=== PATIENT | female | born 1950 | race Caucasian/White ===

== ENCOUNTER 2020-11-10 12:54 | Outpatient (CLI) | payer MEDICARE, OTHER ==
[2020-11-10] MEDS ORDERED: DIPH25CA61 PO (13:45)
[2020-11-10] MEDS ORDERED: OXYB10TA26 PO (13:45)
[2020-11-10] MEDS ORDERED: ASPI81TA45 PO (13:45)
[2020-11-10] MEDS ORDERED: COFF1CAP2 PO (13:45)
[2020-11-10] MEDS ORDERED: MELA10TA PO (13:45)
[2020-11-10] MEDS ORDERED: ATOR20TA37 PO (13:45)
[2020-11-10] MEDS ORDERED: PRIM250T34 PO (13:45)
[2020-11-10] MEDS ORDERED: Prevagen PO (13:45)
[2020-11-10] MEDS ORDERED: DILT240C61 PO (13:45)
[2020-11-10] MEDS ORDERED: OXYC-380 PO (13:45)
[2020-11-10] MEDS ORDERED: SENN8.6T98 PO (13:45)
[2020-11-10] MEDS ORDERED: ARIP10TA33 PO (13:45)
[2020-11-10] MEDS ORDERED: Gabapentin PO (13:45)
[2020-11-10] MEDS ORDERED: LEVO100T5 PO (13:45)
[2020-11-10] MEDS ORDERED: NAPR220C2 PO (13:45)
[2020-11-10] MEDS ORDERED: OMEP40CA42 PO (13:45)
[2020-11-10] MEDS ORDERED: CYCL10TA2 PO (13:45)
[2020-11-10] MEDS ORDERED: LORA10TA75 PO (13:45)
[2020-11-10] MEDS ORDERED: PARO40TA3 PO (13:45)
[2020-11-10] MEDS ORDERED: CARB1TAB33 PO (14:00)
== END 2020-11-10 23:59 | disposition home or self-care (01) ==
LOC: STAR 12:54
PROVIDERS: ATTEND Orthopaedic Surgery
DX: Z01.812 Encounter for preprocedural laboratory examination (principal); Z20.822 Contact with and (suspected) exposure to COVID-19; S46.011A Strain of muscle(s) and tendon(s) of the rotator cuff of right shoulder, initial encounter; M19.011 Primary osteoarthritis, right shoulder; M25.511 Pain in right shoulder; X58.XXXA Exposure to other specified factors, initial encounter; Y93.89 Activity, other specified; Y92.89 Other specified places as the place of occurrence of the external cause; Y99.8 Other external cause status
CPT/HCPCS: 87081; 87635

== ENCOUNTER 2020-11-16 05:20 | Day surgery (SDC) | payer MEDICARE, OTHER ==
[~2020-11-16] VITALS: Ht 149.9 cm; Wt 56.1 kg
[~2020-11-16 05:20] MED LIST: ARIP10TA33 PO; ASPI81TA45 PO; ATOR20TA37 PO; CARB1TAB33 PO; COFF1CAP2 PO; CYCL10TA2 PO; DILT240C61 PO; DIPH25CA61 PO; Gabapentin PO; LEVO100T5 PO; LORA10TA75 PO; MELA10TA PO; NAPR220C2 PO; OMEP40CA42 PO; OXYB10TA26 PO; OXYC-380 PO; PARO40TA3 PO; PRIM250T34 PO; Prevagen PO; SENN8.6T98 PO
[2020-11-16 06:08] VITALS: BP 135/81
[2020-11-16] MEDS ORDERED: GABA100C PO (06:14)
[2020-11-16] MEDS ORDERED: CHLORHEXIDINE 15 ML UDC ONE (06:16)
[2020-11-16] MEDS ORDERED: BUPIVACAINE/PF 0.5% ONE (06:19)
[2020-11-16] MEDS ORDERED: CLINDAMYCIN 150 MG/ML, 6ML ONE (06:20)
[2020-11-16] MEDS ORDERED: CHLORHEXIDINE 15 ML UDC MM ONE (06:30)
[2020-11-16] MEDS ORDERED: LACTATED RINGERS 1,000 ML IV SCH (06:30)
[2020-11-16] MEDS ORDERED: BUPIVACAINE LIPOSOME/PF 10ML INFIL ONE (06:38)
[2020-11-16] MEDS ORDERED: MIDAZOLAM 1 MG/ML, 2ML ONE (06:42)
[2020-11-16] MEDS ORDERED: FENTANYL PF 100 MCG/2ML ONE (06:42)
[2020-11-16] MEDS ORDERED: SUGAMMADEX 200 MG/2 ML IVPush ONE (06:56)
[2020-11-16] MEDS ORDERED: EPINEPHRINE 1 MG/ML, 1ML ONE (06:56)
[2020-11-16] MEDS ORDERED: OXYcodone/APAP 10/325MG TABLET PO PRN (07:00)
[2020-11-16] MEDS ORDERED: CYCLOBENZAPRINE 10 MG TABLET PO PRN (07:00)
[2020-11-16] MEDS ORDERED: ACETAMINOPHEN 325 MG TABLET PO PRN (07:30)
[2020-11-16] MEDS ORDERED: OXYcodone 5 MG/5 ML ORAL.SOL UDC PO PRN (07:30)
[2020-11-16] MEDS ORDERED: LABETALOL 5MG/ML, 20ML IV PRN (07:30)
[2020-11-16] MEDS ORDERED: ALBUTEROL SULFATE 2.5 MG/3 ML NPPB PRN (07:30)
[2020-11-16] MEDS ORDERED: BUPIVACAINE/PF 0.25% ONE (07:30)
[2020-11-16] MEDS ORDERED: hydrALAzine 20 MG/ML, 1ML IV PRN (07:30)
[2020-11-16] MEDS ORDERED: PROMETHAZINE 25 MG/ML, 1ML IVPush PRN (07:30)
[2020-11-16] MEDS ORDERED: HYDROmorphone 1 MG/ML, 1ML INJ IVPush PRN (07:30)
[2020-11-16] MEDS ORDERED: FENTANYL PF 100 MCG/2ML IV PRN (07:30)
[2020-11-16] MEDS ORDERED: MEPERIDINE/PF 25MG/0.5ML IVPush PRN (07:30)
[2020-11-16] MEDS ORDERED: LORazepam 2 MG/ML, 1ML IVPush PRN (07:30)
[2020-11-16] MEDS ORDERED: LIDOCAINE-MPF 2% ,5ML ONE (07:38)
[2020-11-16] MEDS ORDERED: NEOSTIGMINE 1 MG/ML, 10ML ONE (07:38)
[2020-11-16] MEDS ORDERED: PROPOFOL 10 MG/ML, 20ML ONE (07:38)
[2020-11-16] MEDS ORDERED: DEXAMETHASONE 4 MG/ML, 1ML ONE (07:38)
[2020-11-16] MEDS ORDERED: ONDANSETRON 2MG/ML, 2ML ONE (07:38)
[2020-11-16] MEDS ORDERED: CEFAZOLIN 1,000 MG ONE (07:38)
[2020-11-16] MEDS ORDERED: ROCURONIUM 10MG/ML,5ML ONE (07:38)
[2020-11-16] MEDS ORDERED: GLYCOPYRROLATE 0.2MG/1ML, 5ML ONE (07:38)
[2020-11-16] MEDS ORDERED: CARBIDOPA/LEVODOPA 10 MG/100 MG TABLET PO SCH (08:00)
[2020-11-16] MEDS ORDERED: PAROXETINE HCL 40 MG PO SCH (09:00)
[2020-11-16] MEDS ORDERED: PRIMIDONE 250 MG TABLET PO SCH (09:00)
[2020-11-16] MEDS ORDERED: DILTIAZEM HCL 240 MG PO SCH (09:00)
[2020-11-16] MEDS ORDERED: LORATADINE 10 MG TABLET PO SCH (09:00)
[2020-11-16] MEDS ORDERED: GABAPENTIN 100 MG CAPSULE PO SCH (09:00)
[2020-11-16] MEDS ORDERED: TEMPLATE NON-FORMULARY MED. (Omeprazole** 40 MG) PO SCH (09:00)
[2020-11-16] MEDS ORDERED: ARIPIPRAZOLE 10 MG TABLET PO SCH (09:00)
[2020-11-16] MEDS ORDERED: TEMPLATE NON-FORMULARY MED. (Oxybutynin Chloride** (Oxybutynin Chloride Er**) 10 MG) PO SCH (09:00)
[2020-11-16] MEDS ORDERED: LEVOTHYROXINE 100 MCG TABLET PO SCH (09:00)
[2020-11-16] MEDS ORDERED: ASPIRIN 81 MG TABLET EC PO SCH (09:00)
[2020-11-16] MEDS ORDERED: ATORVASTATIN 20 MG TABLET PO SCH (21:00)
[2020-11-16] MEDS ORDERED: SENNOSIDES 8.6 MG TABLET PO SCH (21:00)
[2020-11-16] MEDS ORDERED: DIPHENHYDRAMINE 25 MG CAPSULE PO SCH (21:00)
== END 2020-11-16 11:00 | disposition home or self-care (01) ==
LOC: OUT 05:20
PROVIDERS: ATTEND Orthopaedic Surgery
DX: M19.011 Primary osteoarthritis, right shoulder (principal); G89.18 Other acute postprocedural pain; I10 Essential (primary) hypertension; G20 Parkinson's disease; K21.9 Gastro-esophageal reflux disease without esophagitis; J45.909 Unspecified asthma, uncomplicated; G47.33 Obstructive sleep apnea (adult) (pediatric); E78.5 Hyperlipidemia, unspecified; Z79.82 Long term (current) use of aspirin; Z79.890 Hormone replacement therapy; Z79.891 Long term (current) use of opiate analgesic; Z79.899 Other long term (current) drug therapy; Z88.0 Allergy status to penicillin; Z99.81 Dependence on supplemental oxygen; Z82.61 Family history of arthritis; Z82.3 Family history of stroke; Z82.49 Family history of ischemic heart disease and other diseases of the circulatory system
CPT/HCPCS: 23472; 64415; 93005; C1713; C1776; J0171; J0690; J1100; J2250; J2405; J2704; J2710; J3010; J7120